=== PATIENT | male | born 1955 | race African-American/Black ===

== ENCOUNTER 2018-06-23 22:52 | Inpatient (IN) ==
--- NOTE | 2018-06-23 23:10 | ED ---
HPI General Chief complaint: Psychiatric Symptoms Stated complaint: Psych Eval/DBPD Time Seen by Provider: 06/23/18 23:06 History of Present Illness HPI narrative: This is a 62-year-old male who denies any significant past medical history. He presents under Lau act initiated by the Police Department. He reports that at noon today he began having passive suicidal thoughts. [facility] and [facility] on going [facility] [place] [facility] [place] tomorrow to discuss these feelings. He reports that he spoke to a friend over the phone this evening and the friend called the police and he was placed under Lau act. Symptoms are moderate, duration one day, no obvious aggravating or factors. He denies any drug use. He endorses occasional alcohol use. Denies any homicidal ideations, auditory or visual hallucinations. He reports that he was previously living in [place] but then most recently over the past few months was traveling in the [place] region of the [facility]. He does not currently have a home base. No other complaints. Related Data Home Medications Medication Instructions Recorded Confirmed No Known Home Medications 06/24/18 06/24/18 Allergies Allergy/AdvReac Type Severity Reaction Status Date / Time No Known Allergies Allergy Unverified 06/23/18 23:07 Review of Systems ROS: all other systems reviewed are negative PMFSH Social History Social History Recent Travel in [facility] within the Last 8 Weeks: No Recent Out of Country Travel within the Last 8 Weeks: No Exam Narrative Exam Narrative: GENERAL: Well-developed well nourished male no acute distress SKIN: Warm and dry. HEAD: Atraumatic. Normocephalic. EYES: Pupils equal and round. No scleral icterus. No injection or drainage. ENT: No nasal bleeding or discharge. Mucous membranes pink and moist. NECK: Trachea midline. No JVD. CARDIOVASCULAR: Regular rate and rhythm. No murmur appreciated. RESPIRATORY: No accessory muscle use. Clear to auscultation. Breath sounds equal bilaterally. GASTROINTESTINAL: Abdomen soft, non-tender, nondistended. Hepatic and splenic margins not palpable. MUSCULOSKELETAL: No obvious deformities. No clubbing. No cyanosis. No edema. NEUROLOGICAL: Awake and alert. No obvious cranial nerve deficits. Motor grossly within normal limits. Normal speech. PSYCHIATRIC: Depressed mood. Insight and judgment normal. Course Initial Documented Vital Signs Temperature 97.9 F 10/16/18 22:58 Pulse Rate 76 06/23/18 22:58 Blood Pressure 150/93 H 06/23/18 22:58 Pulse Oximetry 100 06/23/18 22:58 Last Documented Vital Signs Temperature 97.9 F 06/23/18 22:58 Pulse Rate 76 06/23/18 22:58 Blood Pressure 150/93 H 06/23/18 22:58 Pulse Oximetry 100 06/23/18 22:58 Medical Decision Making MDM Narrative Medical decision making narrative: Mental health screening discussed with the patient. Psychiatric screen ordered. Lab work has been reviewed. He is medically cleared for psychiatric disposition. Medical Screen Exam Complete: Yes Emergency Medical Condition: Yes Differential Diagnosis Differential Diagnosis: Adjustment reaction, major depressive disorder, acute psychosis, substance-induced mood disorder Lab Data Result diagrams: 06/23/18 22:59 06/23/18 22:59 Lab Results 06/23/18 06/23/18 06/23/18 Range/Units 22:59 22:59 23:55 WBC 5.7 (4.0-11.0) th/mm3 RBC 5.05 (4.50-5.90) mil/mm3 Hgb 14.4 (13.0-17.0) gm/dL Hct 43.4 (39.0-51.0) % MCV 85.9 (80.0-100.0) fL MCH 28.4 (27.0-34.0) pg MCHC 33.1 (32.0-36.0) % RDW 13.6 (11.6-17.2) % Plt Count 250 (150-450) th/mm3 MPV 9.3 (7.0-11.0) fL Neut % (Auto) 51.3 (16.0-70.0) % Lymph % (Auto) 38.9 (9.0-44.0) % [place] % (Auto) 7.0 (0.0-8.0) % Eos % (Auto) 1.9 (0.0-4.0) % Baso % (Auto) 0.9 (0.0-2.0) % Neut # (Auto) 2.9 (1.8-7.7) th/mm3 Lymph # (Auto) 2.2 (1.0-4.8) th/mm3 [place] # (Auto) 0.4 (0.0-0.9) th/mm3 Eos # (Auto) 0.1 (0.0-0.4) th/mm3 Baso # (Auto) 0.0 (0.0-0.2) th/mm3 WBC Differential . Differential Comment Auto diff final Sodium 144 (136-145) meq/L Potassium 3.6 (3.5-5.1) meq/L Chloride 107 (98-107) meq/L Carbon Dioxide 26.6 (21.0-32.0) meq/L Anion Gap 10 (5-15) meq/L BUN 9 (7-18) mg/dL Creatinine 0.91 (0.60-1.30) mg/dL Estimated GFR 85 L (>89) mL/min Random Glucose 82 (74-106) mg/dL Calcium 9.1 (8.5-10.1) mg/dL Total Bilirubin 0.4 (0.2-1.0) mg/dL AST 15 (15-37) U/L ALT 20 (12-78) U/L Alkaline Phosphatase 73 (45-117) U/L Total Protein 7.9 (6.4-8.2) g/dL Albumin 3.9 (3.4-5.0) g/dL TSH 1.390 (0.358-3.740) uIU/mL Urine Opiates Screen Neg (Neg) Ur Barbiturates Screen Neg (Neg) Ur Amphetamines Screen Neg (Neg) U Benzodiazepines Scrn Neg (Neg) Urine Cocaine Screen Neg (Neg) U Cannabinoids Screen Neg (Neg) Serum Alcohol 96 H (0-5) mg/dL Discharge Plan Discharge Disposition Patient Disposition: 30 Still Patient Discharge Condition Condition: Stable Discharge Details Diagnosis: Encounter for medical clearance for patient hold Physicians Team ED Provider: Iam Sal ED Midlevel Provider: Leonardo Posey Primary Care Provider: Primary Care Radha Christopher Rxs /Orders / Referrals /Forms Prescriptions: No Action No Known Home Medications RF: 0 Status ED Status: Medically Cleared
[2018-06-23 23:55] LABS: Baso % (Auto) 0.9 % (0.0-2.0); Eos # (Auto) 0.1 th/mm3 (0.0-0.4); Eos % (Auto) 1.9 % (0.0-4.0); Hematocrit 43.4 % (39.0-51.0); Hemoglobin 14.4 gm/dL (13.0-17.0); Lymph # (Auto) 2.2 th/mm3 (1.0-4.8); Lymph % (Auto) 38.9 % (9.0-44.0); Mean Corpuscular HGB Conc 33.1 % (32.0-36.0); Mean Corpuscular Hemoglobin 28.4 pg (27.0-34.0); Mean Corpuscular Volume 85.9 fL (80.0-100.0); Mean Platelet Volume 9.3 fL (7.0-11.0); Mono # (Auto) 0.4 th/mm3 (0.0-0.9); Neut # (Auto) 2.9 th/mm3 (1.8-7.7); Neut % (Auto) 51.3 % (16.0-70.0); Platelet Count 250 th/mm3 (150-450); Red Blood Count 5.05 mil/mm3 (4.50-5.90); Red Cell Distribution Width 13.6 % (11.6-17.2); White Blood Count 5.7 th/mm3 (4.0-11.0)
[2018-06-24 00:10] LABS: Albumin 3.9 g/dL (3.4-5.0); Anion Gap 10 meq/L (5-15); Aspartate Aminotransferase 15 U/L (15-37); Blood Urea Nitrogen 9 mg/dL (7-18); Calcium 9.1 mg/dL (8.5-10.1); Carbon Dioxide 26.6 meq/L (21.0-32.0); Chloride 107 meq/L (98-107); Glomerular Filtration Rate 85 mL/min (>89); Glucose,Random 82 mg/dL (74-106); Potassium 3.6 meq/L (3.5-5.1); Sodium 144 meq/L (136-145)
[2018-06-24 00:11] LABS: Alanine Aminotransferase 20 U/L (12-78)
[2018-06-24 00:22] LABS: Alkaline Phosphatase 73 U/L (45-117); Total Protein 7.9 g/dL (6.4-8.2)
[2018-06-24 00:28] LABS: Alcohol 96 mg/dL (0-5)
[2018-06-24 00:44] LABS: Amphetamine Screen,Urine Neg (Neg); Barbiturate Screen,Urine Neg (Neg); Cannabinoid Screen,Urine Neg (Neg); Cocaine Screen,Urine Neg (Neg)
[2018-06-24 00:51] LABS: Opiate Screen,Urine Neg (Neg)
[2018-06-24] MEDS ORDERED: LORazepam 1 MG Tablet PO PRN (09:42)
[2018-06-24] MEDS ORDERED: Aluminum/Magnesium/Simethacone Susp 30 ML UDC PO PRN (09:42)
[2018-06-24] MEDS ORDERED: Bisacodyl 10 MG Supp RECTAL PRN (09:42)
[2018-06-24] MEDS ORDERED: Haloperidol Inj 5 MG/ML Ampul IV.PUSH PRN (09:42)
--- NOTE | 2018-06-24 16:37 | P.HPPSY ---
Provisional Diagnosis Admission Date: June 24, 2018 09:45 [place] I.: Adjustment disorder with depressed mood vs major depressive disorder, rule out alcohol induced mood disorder, alcohol use disorder Competence Certification of Person's Competence To Provide Express and Informed Consent I have personally examined Kaz Plasencia, a person being served at [facility] on, June 24, 2018 1628. Express and informed consent means consent voluntarily given in writing, by a competent person, after sufficient explanation and disclosure of the subject matter involved to enable the person to make a knowing and willful decision without any element of force, fraud, deceit, duress, or other form of constraint or coercion. This person is 18 years of age or older, is not now known to be incompetent to consent to treatment with a guardian advocate, and does not have a health care surrogate or proxy currently making medical treatment decisions. I have found this person to be one of the following: [] Competent to provide express and informed consent, as defined above, for voluntary admission to this facility and is competent to provide express and informed consent for treatment. He/she has the consistent capacity to make well reasoned, willful, and knowing decisions concerning his or her medical or mental health treatment. The person fully and consistently understands the purpose of the admission for examination/placement and is fully capable of personally exercising all rights assured [place] [] Incompetent to provide express and informed consent to voluntary admission, and this is incompetent to provide express and informed consent to treatment. The person must be transferred to involuntary status and a petition for a guardian advocate filed with the Circuit Court. [x] Refusing to provide express and informed consent to voluntary admission but is competent to provide express and informed consent for treatment. The person must be discharged or transferred to involuntary status. Form shall be completed within 24 hours of a person's arrival at the receiving facility and filed in the clinical record of each person: 1. Admitted on a voluntary basis 2. Permitted to provide express and informed consent to his/her own treatment 3. Allowed to transfer from involuntary to voluntary status 4. Prior to permitting a person to consent to his or her own treatment after having been previously found incompetent to consent to treatment. History of Present Illness Capacity: Has capacity History of Present Illness: The patient is a 62-year-old -[place] man, domiciled in [place] , he is here visiting a friend, single, unemployed, , with a psychiatric history of depression, 2 previous psychiatric hospitalizations, no previous suicidal attempts, he is not in psychotropics, no significant medical history, who presents under Lau act initiated by the Police Department. On psychiatric evaluation today the patient is quite oddly related, with a very bizarre affect, requesting to be discharged and initially denying that he has expressed suicidal ideation. He reports that he began having passive suicidal thoughts yesterday [place]. He admits that he was drinking some alcohol, but he was not drunk he reports [facility] and was planning on going to [facility] [place] tomorrow to discuss these feelings. He reports that he spoke to a friend over the phone this evening and the friend called the police and he was placed under Lau act. He says that his friend called the police because she wants to still $2500 that he has in her house. Patient became quite agitated during the evaluation requesting to be discharge and is stating that he is not going to speak with a psychiatrist unless is a [facility] the [facility]. I try to de-escalate the patient verbally, but he refused to continue talking to me and refused to sign the medication consent. PPHx: Depression, previous psychiatric hospitalizations, no psychiatric PMHx: No medical history Substance Hx: Alcohol use, the patient declined to quantify Family Hx: No medical family history Social Hx: The patient was born and raised in [place], he lives in [facility], is unemployed, a , single - Inpatient Certification I certify that the inpatient services were ordered in accordance with Medicare regulations governing the order. This includes certification that hospital inpatient services are reasonable and necessary and in the case of services not specified as inpatient-only under 42 CFR 419.22(n), that they are appropriately provided as inpatient services in accordance to with the 2-midnight benchmark under 43 CFR 412.3(e) I certify that inpatient psychiatric hospital services are medically necessary. Evaluation and treatment and/or diagnostic testing are expected to improve the patient's condition. The patient needs on a daily basis, active treatment furnished directly by or requiring the supervision of inpatient psychiatric facility personnel. Estimated Total Length of Stay (Days): 7 Plans for Post Hospital Care: Home PMFSH - History History Provided By: Patient - Medical History Medical History: Medical History (Last Updated 06/24/18 @ 01:36 by Hector Rosado) Patient denies medical problems - Surgical History Surgical History: Surgical History (Last Updated 06/24/18 @ 01:36 by Hector Rosado) No history of previous surgery - Tobacco History Second Hand Smoke Exposure: No Smoking Status: Never smoker - Alcohol History How Often Do You Have a Drink Containing Alcohol: Monthly or less - Substance Use History Substance History: No History of Abuse, Active Abuse - Substance Use Type Alcohol Status: Active - Travel History Recent Travel in the [place] Within the Last 8 Weeks: No Recent Travel Out of the Country Within the Last 8 Weeks: No - Immunization History Tetanus Immunization: Unsure Hx Influenza Vaccine This Season: No Medications and Allergies Active Medications: Active Medications Al Hydrox/Mg Hydrox/Simethicone (Mag-Al Plus Susp Liq) 30 ml PO Q6H PRN PRN Reason: DYSPEPSIA Al Hydroxide/Mg Hydroxide (Milk Of Magnesia Liq) 30 ml PO Q12H PRN PRN Reason: Mild Constipation Bisacodyl (Dulcolax Supp) 10 mg RECTAL DAILY PRN PRN Reason: SEVERE CONSITIPATION Flumazenil (Romazecon Inj) 0.2 mg IV.PUSH Q1M PRN PRN Reason: OVERSEDATION Haloperidol Lactate (Haldol Inj) 1 mg IV.PUSH Q15M PRN PRN Reason: for severe agitation Lactulose (Lactulose Liq) 30 ml PO DAILY PRN PRN Reason: SEVERE CONSITIPATION Lorazepam (Ativan) 1 mg PO Q4H PRN PRN Reason: for CIWA 8-10 Lorazepam (Ativan Inj) 2 mg IV.PUSH Q2H PRN PRN Reason: for CIWA 11-14 Lorazepam (Ativan Inj) 2 mg IV.PUSH Q1H PRN PRN Reason: for CIWA 15-20 Lorazepam (Ativan Inj) 2 mg IV.PUSH Q15M PRN PRN Reason: for CIWA > 20 Lorazepam (Ativan Inj) 1 mg IV.PUSH Q4H PRN PRN Reason: for CIWA 8-10 Lorazepam (Ativan) 2 mg PO Q2H PRN PRN Reason: for CIWA 11-14 Senna/Docusate Sodium (Shira-Colace) 1 tab PO BID MANOLO Sennosides (Senokot) 17.2 mg PO Q12H PRN PRN Reason: Moderate Constipation Allergies Allergy/AdvReac Type Severity Reaction Status Date / Time No Known Allergies Allergy Unverified 06/23/18 23:07 Home Medications Medication Instructions Recorded Confirmed Type No Known Home Medications 06/24/18 06/24/18 History Results - Labs CBC & Chem 7: 06/23/18 22:59 06/23/18 22:59 Labs: Laboratory Results - last 24 hr 06/23/18 06/23/18 06/23/18 22:59 22:59 23:55 WBC 5.7 RBC 5.05 Hgb 14.4 Hct 43.4 MCV 85.9 MCH 28.4 MCHC 33.1 RDW 13.6 Plt Count 250 MPV 9.3 Neut % (Auto) 51.3 Lymph % (Auto) 38.9 [place] % (Auto) 7.0 Eos % (Auto) 1.9 Baso % (Auto) 0.9 Neut # (Auto) 2.9 Lymph # (Auto) 2.2 [place] # (Auto) 0.4 Eos # (Auto) 0.1 Baso # (Auto) 0.0 WBC Differential . Differential Comment Auto diff final Sodium 144 Potassium 3.6 Chloride 107 Carbon Dioxide 26.6 Anion Gap 10 BUN 9 Creatinine 0.91 Estimated GFR 85 L Random Glucose 82 Calcium 9.1 Total Bilirubin 0.4 AST 15 ALT 20 Alkaline Phosphatase 73 Total Protein 7.9 Albumin 3.9 TSH 1.390 Urine Opiates Screen Neg Ur Barbiturates Screen Neg Ur Amphetamines Screen Neg U Benzodiazepines Scrn Neg Urine Cocaine Screen Neg U Cannabinoids Screen Neg Serum Alcohol 96 H Exam Vital signs: Vital Signs 06/23/18 22:58 06/24/18 06:24 06/24/18 14:30 Temperature 97.9 F 98.0 F Pulse Rate 76 69 67 Respiratory Rate 18 18 Blood Pressure 150/93 H 113/72 133/90 Pulse Oximetry 100 98 97 Intake & Output 06/23/18 06/24/18 06/24/18 18:59 06:59 18:59 Weight 5 kg Other: Date of Last Bowel Movement 06/23/18 Weight On Admission 65.1 kg Narrative: No psychomotor agitation retardation, no EPS, no withdrawal symptoms, no gait disturbance - Constitutional no acute distress - Routine HEENT Exam Head: Present: normocephalic, atraumatic Eye: Present: EOMI ENT: Present: mucous membranes moist Mental Status Examination Appearance: Appropriate Consciousness: Alert Orientation: x4 Motor Activity: Normal gait Speech: Unremarkable Language: Adequate Fund of Knowledge: Adequate Attention and Concentration: Adequate Memory: Unremarkable Mood: Appropriate Affect: Appropriate Thought Process & Associations: Intact Thought Content: Appropriate Hallucination Type: None Delusion Type: None Suicidal Ideation: No Suicidal Plan: No Suicidal Intention: No Homicidal Ideation: No Homicidal Plan: No Homicidal Intention: No Insight: Adequate Judgment: Adequate Assessment and Plan - Assessment (1) Acute adjustment disorder Code(s): F43.20 - Adjustment disorder, unspecified Status: Acute - Plan Plan: On my psychiatric evaluation today the patient is quite oppositional, irritable , oddly related. The patient is minimizing symptomatology and the facts stated in the Lau act. But, in my opinion everything is quite confusing because he does admit that he called the [place] hot[place] expressing depression and SI, but in the other hand he says that his friend called the police because he wants to steal the money that he keeps in her house. There is a patient with a reported history of depression, he has alcohol use disorder, his BAL arrival was 96 which indicates that the patient could be intoxicated, but there is no collateral information, no previous psychiatric or hospital visits to [place] and at this moment I am unable to lift this Lau act. Patient will be admitted in psychiatry for longitudinal observation and for reevaluation of the need of the Lau act. I have offered to the patient medication for depression as he initially expressed to the [place] hotline, but he declined to sign. Transferred to 2600 unit. Will order CIWA protocol. Justification for Continued Inpatient Stay: Will be admitted in psychiatry.
[2018-06-24] MEDS: Senna/Docusate Sodium 8.6/50 MG Tablet PO SCH (21:37)
[2018-06-25 05:51] VITALS: BP 110/58; PULSE 64; RESP 16; TEMP 97.5; O2SAT 100
[2018-06-25] MEDS: Senna/Docusate Sodium 8.6/50 MG Tablet PO SCH (08:07)
[2018-06-25 12:01] LABS: Anion Gap 4 meq/L (5-15); Blood Urea Nitrogen 10 mg/dL (7-18); Calcium 9.2 mg/dL (8.5-10.1); Carbon Dioxide 31.2 meq/L (21.0-32.0); Chloride 105 meq/L (98-107); Chol/HDL Ratio 2.28 Ratio; Cholesterol 201 mg/dL (120-200); Glomerular Filtration Rate Greater Than 89 mL/min (>89); Glucose,Random 84 mg/dL (74-106); LDL Cholesterol,Calculated 99 mg/dL (0-99); Potassium 3.9 meq/L (3.5-5.1); Sodium 140 meq/L (136-145); Triglycerides 69 mg/dL (42-150)
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
[2018-06-25 15:56] LABS: Hemoglobin A1c 5.4 % (4.3-6.0)
== END 2018-06-25 16:00 | disposition home or self-care (01) ==
LOC: NEPJ 22:52 → NEDA 06-24 09:45 → H260 06-24 11:37
PROVIDERS: ADMIT Psychiatry & Neurology Psychiatry; ATTEND Psychiatry & Neurology Psychiatry